=== PATIENT | male | born 1980 | race Caucasian/White ===

== ENCOUNTER 2022-10-10 19:34 | Outpatient (CLI) | payer BC, SELFPAY ==
--- NOTE | 2022-10-18 12:50 | W.PM.SLEEP ---
Sleep Study Details Details Interpreting Provider: Juanito Lares MD Date of Sleep Study: 10/10/22 Sleep Study Details: STUDY TYPE:? Home ? BMI:? 48.8 ORDERING PROVIDER:? Brittney INDICATION:? Concerns about sleep apnea ? SLEEP SUMMARY:? 368.5 minutes monitored RESPIRATORY SUMMARY:? AHI 54.1, supine 59.7, left lateral 33.3 Low oxygen 81% 4.1% of study oxygen less than 90%, 0.2% of study oxygen less than 85% Snoring 22.4 % PERIODIC LIMB MOVEMENTS OF SLEEP:? Not recorded CARDIAC:? 55-1 awake, mean 79.7 beats per minute IMPRESSION:? Severe obstructive sleep apnea RECOMMENDATION: Either in-lab titration or AutoSet CPAP at pressure of 4-17. Weight loss is recommended
== END 2022-10-10 19:35 | disposition home or self-care (01) ==
LOC: SLEEP 19:34
PROVIDERS: PCP Family Medicine; Visit Provider Family Medicine
DX: G47.33 Obstructive sleep apnea (adult) (pediatric) (principal)
CPT/HCPCS: 95806

== ENCOUNTER 2023-05-04 09:06 | Outpatient (CLI) | payer BC, SELFPAY | END 2023-05-04 09:07 | disposition home or self-care (01) | PROVIDERS: PCP Family Medicine; Visit Provider Family Medicine | DX: I10 Essential (primary) hypertension (principal); E66.01 Morbid (severe) obesity due to excess calories | CPT/HCPCS: 80048; 80061 ==

== ENCOUNTER 2023-11-29 09:00 | Outpatient (CLI) | payer BC, SELFPAY | END 2023-11-29 09:01 | disposition home or self-care (01) | PROVIDERS: PCP Family Medicine; Visit Provider Family Medicine | DX: I10 Essential (primary) hypertension (principal); R53.83 Other fatigue; Z13.0 Encounter for screening for diseases of the blood and blood-forming organs and certain disorders involving the immune mechanism | CPT/HCPCS: 80048; 84443; 85025 ==

== ENCOUNTER 2024-06-17 14:01 | Outpatient (CLI) | payer BC, SELFPAY ==
--- OUTSIDE RECORDS SUMMARY | 2024-06-17 14:03 | XMS_ITS | Clinical Summary ---
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 60 tablet 05/04/2018 Active Active Problems Problem Noted Date Diagnosed Date Acute appendicitis with localized peritonitis Family History Medical History Relation Name Comments Deep vein thrombosis Brother Clotting disorder Father Deep vein thrombosis Father Hypertension Father Relation Name Status Comments Brother Father Social History Tobacco Use Types Packs/Day Years Used Date Smoking Tobacco: Never Smokeless Tobacco: Never Tobacco Cessation:Counseling Given: No Alcohol Use Standard Drinks/Week Comments Yes 2 (1 standard drink = 0.6 oz pur e alcohol) Sex and Gender Information Value Date Recorded Sex Assigned at Not on file Gender Identity Not on file Sexual Orientation Not on file Obstetrics History Last Filed Vital Signs Vital Sign Reading Time Taken Comments Blood Pressure 183/120 08/05/2021 11:06 PM [employer] ENGINE[employer] Pulse 112 08/05/2021 11:06 PM [employer] Temperature 37.1 ??C (98.7 ??F) 08/05/2021 11:[address] Respiratory Rate 20 08/05/2021 11:06 PM [employer] ENG[employer]ER Oxygen Saturation 99% 08/05/2021 11:06 PM [employer]GY ENGINEER Inhaled Oxygen Concentration - - Weight 142.4 kg (314 lb) 05/14/2018 10:05 AM CDT Height 180.3 cm (5' 11) 05/14/2018 10:05 AM CDT Body Mass Index 43.79 05/14/2018 10:05 AM CDT Plan of Treatment Health Maintenance Due Date Last Done Comments Tdap 1991 HIV for age 15-65 1995 Hepatitis C screening for ag e 18-79 1998 Tetanus booster 2000 Lipids for age 35-44 2015 Depression screening for age 12+ 08/02/2017 08/02/2016 BMI (ht and wt on same day) for age 18+ 05/14/2019 05/14/2018, 08/02/2016, 05/05/2016 COVID-19 vaccine series (2022- season) 2024 02/09/2021, 01/12/2021 Influenza for age 9-49 05/19/2024 Pneumococcal series for age 6-64 Aged Out No longer eligible b ased on patient's age to complete this topic Advance Directives * Full Code (Latest Code Status on File) Date Activated Date Inactivated Comments 05/04/2018 1:07 AM 05/05/2018 12:48 PM Question Answer Comments Code Status Discussion: Discussed Care Teams Electromagnet Crane Operator Relationship Specialty Start Date End Date Clinic, [facility] [address] [place] [address] PCP - General 05/18/21
== END 2024-06-17 14:02 | disposition home or self-care (01) ==
PROVIDERS: PCP Family Medicine; Visit Provider Family Medicine
DX: I10 Essential (primary) hypertension (principal); Z13.220 Encounter for screening for lipoid disorders
CPT/HCPCS: 80048; 80061